=== PATIENT | female | born 1960 | race Two or more races ===

== ENCOUNTER 2024-03-05 08:54 | Day surgery (SDC) | payer OTHER ==
[~2024-03-05] VITALS: Ht 157.5 cm; Wt 55.2 kg
[~2024-03-05 08:54] MED LIST: AMLO2.5T3 PO; ATEN100T PO; IBUP-1022 PO; OMEP-173 PO
[2024-03-05] MEDS ORDERED: MIDAZOLAM INJ 2MG/2ML VIAL As Ordered ONE (10:09)
[2024-03-05] MEDS ORDERED: fentaNYL 100 MCG/2 ML INJECTION As Ordered ONE (10:09)
[2024-03-05] MEDS: OFLOXACIN 0.3 % (OCUFLOX) OPTH SOL 5ML OD ONE (10:24)
[2024-03-05] MEDS: TROPICAMIDE 1% OPHTH SOLN 15ML OD SCH (10:24)
[2024-03-05] MEDS: ATROPINE SULFATE 1% OPHTH SOLN 2ML BTL OD SCH (10:24)
[2024-03-05] MEDS: LIDOCAINE 3.5 % 1ML OPHTH TOPICAL GEL OU ONE (10:24)
[2024-03-05] MEDS: PHENYLEPHRINE 2.5% OPHTH SOL 2ML OD SCH (10:24)
[2024-03-05] MEDS: PHENYLEPHRINE 10% OPHTH SOL 5ML OD PRN (10:24)
[2024-03-05] MEDS: BSS IRRIG/VANCO(10MG)/TOBRA(5MG)/EPINEPH(1:1000-0.5CC)500ML BAG-ORONLY As Ordered ONE (10:33)
[2024-03-05] MEDS: LIDOCAINE 1% SDV 5ML VIAL As Ordered ONE (10:33)
[2024-03-05] MEDS: CEFUROXIME 1MG/0.1ML INTRACAMERAL INJ As Ordered ONE (10:42)
[2024-03-05] MEDS: CARBACHOL 0.01% OPHTH SOLN 1.5ML VIAL As Ordered ONE (10:46)
[2024-03-05 10:50] VITALS: BP 133/95; TEMP 97.1; O2SAT 98
== END 2024-03-05 11:05 | disposition home or self-care (01) ==
LOC: M SDC 08:54 → EDSEX 13:00
PROVIDERS: ATTEND Ophthalmology
DX: H25.11 Age-related nuclear cataract, right eye (principal); H57.03 Miosis; I10 Essential (primary) hypertension; Z79.899 Other long term (current) drug therapy; Z90.49 Acquired absence of other specified parts of digestive tract
CPT/HCPCS: 66982; J0697; J2250; J3010; V2632

== ENCOUNTER 2024-03-12 07:06 | Day surgery (SDC) | payer OTHER ==
[~2024-03-12] VITALS: Ht 157.5 cm; Wt 56.4 kg
[~2024-03-12 07:06] MED LIST changes: +MIDAZOLAM INJ 2MG/2ML VIAL As Ordered ONE; +PHENYLEPHRINE 10% OPHTH SOL 5ML OS PRN
[2024-03-12] MEDS ORDERED: fentaNYL 100 MCG/2 ML INJECTION As Ordered ONE (07:07)
[2024-03-12] MEDS: OFLOXACIN 0.3 % (OCUFLOX) OPTH SOL 5ML OS ONE (08:01)
[2024-03-12] MEDS: TROPICAMIDE 1% OPHTH SOLN 15ML OS SCH (08:02)
[2024-03-12] MEDS: PHENYLEPHRINE 2.5% OPHTH SOL 2ML OS SCH (08:02)
[2024-03-12] MEDS: ATROPINE SULFATE 1% OPHTH SOLN 2ML BTL OS SCH (08:02)
[2024-03-12] MEDS: LIDOCAINE 3.5 % 1ML OPHTH TOPICAL GEL OU ONE (08:02)
[2024-03-12] MEDS: CEFUROXIME 1MG/0.1ML INTRACAMERAL INJ As Ordered ONE (09:03)
[2024-03-12] MEDS: LIDOCAINE 1% SDV 5ML VIAL As Ordered ONE (09:03)
[2024-03-12] MEDS: BSS IRRIG/VANCO(10MG)/TOBRA(5MG)/EPINEPH(1:1000-0.5CC)500ML BAG-ORONLY As Ordered ONE (09:04)
[2024-03-12 09:12] VITALS: BP 138/80; TEMP 97.8; O2SAT 98
== END 2024-03-12 09:26 | disposition home or self-care (01) ==
LOC: M SDC 07:06
PROVIDERS: ATTEND Ophthalmology
DX: H25.12 Age-related nuclear cataract, left eye (principal); I10 Essential (primary) hypertension; K21.9 Gastro-esophageal reflux disease without esophagitis; Z79.899 Other long term (current) drug therapy
CPT/HCPCS: 66984; J0697; J2250; J3010; V2632